=== PATIENT | male | born 1945 | race Caucasian/White ===

== ENCOUNTER → 2020-12-18 08:47 | Outpatient (CLI) | payer OTHER, SELFPAY ==
[2020-12-18 18:57] LABS: SARS-CoV-2 RNA PCR Negative
== END ==
PROVIDERS: PCP Family Medicine Adolescent Medicine; Visit Provider Family Medicine Adolescent Medicine
DX: Z20.822 Contact with and (suspected) exposure to COVID-19 (principal); R05 Cough; J02.9 Acute pharyngitis, unspecified
CPT/HCPCS: C9803; U0003; U0005

== ENCOUNTER → 2024-08-31 15:07 | Outpatient (CLI) | payer OTHER, SELFPAY ==
--- NOTE | ~2024-08-31 | XR_ITS ---
HISTORY: M54.50 - Low back pain, unspecified COMPARISON: 08/22/2017 TECHNIQUE: 3 view lumbar spine. FINDINGS: 6 degrees of dextroscoliotic curvature of the lumbar spine is identified. Diffuse bony demineralization and significant degenerative disease are noted with osteophyte formatio n (some bridging) and disc space narrowing. Significant facet arthropathy is noted, specifically within the lower lumbar spine at the level of L4 /L5 and L5/S1. Compression of the inferior endplate of L5 is identified, unchanged from prior. Grade 1 anterolisthesis of L5 onto S1 is also noted, also unchanged. Densely calcified atherosclerotic disease within the infrarenal abdominal aorta. IMPRESSION: Significant degenerative disease, without acute fracture. Reviewed, dictated and finalized at location A.
== END ==
PROVIDERS: PCP Family Medicine Adolescent Medicine; Visit Provider Family Medicine Adolescent Medicine
DX: M51.369 Other intervertebral disc degeneration, lumbar region without mention of lumbar back pain or lower extremity pain (principal)
CPT/HCPCS: 72100